=== PATIENT | female | born 1960 | race Caucasian/White ===

== ENCOUNTER → 2017-09-30 08:34 | Outpatient (CLI) | payer BC | END | disposition home or self-care (01) | LOC: D.RAD 08:34 | DX: K21.9 Gastro-esophageal reflux disease without esophagitis (principal) ==

== ENCOUNTER 2019-01-29 11:27 | Outpatient (CLI) | payer BC ==
[~2019-01-29] VITALS: Ht 162.6 cm; Wt 79.5 kg
--- NOTE | ~2019-01-29 | HEMODYNAMI ---
PATIENT:CROW PEREZ MEDICAL RECORD: [id number] : 58 LOCATION:[facility] ADMISSION DATE: 01/29/19 Generatedon:01/29/201913:58 Patient name: CROW PEREZ Patient #: [id number] SSN: DO B: 1960 Date of study: 01/29/2019 Page: Of Hemodynamic Procedure Report Patient Data Patient Demographics Procedure consent was obtained First Name: CROW Gender: Female Last Name: ANA : 1960 [facility] Initial: RO Age: 58 year(s) Patient #: [id number] Race: Unknown Additional ID: [id number] Contact details Address: [address] [place] [address] State: [place] City: [place] Zip code: [address] Admission Admission Data Admission Date: 01/29/2019 Admission Time: 11:27 Procedure Procedure Types Cath Procedure Diagnostic Procedure LHC LHC w/Coronaries Procedure Description Procedure Date Procedure Date: 01/29/2019 Procedure Start Time: 13:49 Procedure End Time: 13:57 Procedure Staff Name Function Pasquale Penn MD Performing Physician Analy Pace RT Monitor Opal Laura RT Scrub Venu Nelson RN Nurse Procedure Data Cath Procedure Fluoroscopy Diagnostic fluoroscopy Total fluoroscopy Time: 0 time: 0 min min Diagnostic fluoroscopy Total fluoroscopy dose: 288 dose: 288 mGy mGy Contrast Material Contrast Material Type Amount (ml) Isovue 370 51 Isovue 370 51 Entry Location Entry Primary Successful Side Size Upsize Upsize Entry Closure Succes sful Closure Location (Fr) 1 (Fr) 2 (Fr) Remarks Device Remarks Femoral Right 5 Fr Exoseal artery Estimated blood loss: 5 ml Diagnostic catheters Device Type Used For End Catheter Placement MULTIPACK JL 4.0 5Fr Left Coronary catheter Angiography MULTIPACK 3DRC 5Fr Right Coronary catheter Angiography MULTIPACK Pigtail 5 Fr LV Angiography catheter Procedure Complications No complications Procedure Medications Medication Administration Route Dosage Oxygen etCO2 Nasal cannula 2 l/min Heparin Flush Bag added to field 2 bags (1000units/500ml NS) 0.9% NaCl I.V. 100 ml/hr Zofran I.V. 4 mg Lidocaine 2% added to field 20 Fentanyl I.V. 50 mcg Versed I.V. 1 mg Fentanyl I.V. 50 mcg Versed I.V. 1 mg Hemodynamics Rest Heart Rate: 76 (bpm) Pressure Samples Time Site Value (mmHg) Purpose Heart Use Rate(bpm) 13:54 LV 131/7,13 Snapshot 88 13:54 AO 124/75(99) Pullback 82 Gradients Valve Time Site Site 2 Mean SEP/DFP Peak To Heart Use 1 (mmHg) (sec/min) Peak Rate (mmHg) (bpm) Aortic 13:54 LV AO 82 124/75(99) Snapshots Pre Cath Intra NCS Post Cath Vital Signs Time Heart Resp SPO2 etCO2 NIBP (mmHg) Rhythm Pain Sedation Rate (ipm) (%) (mmHg) Status Level (bpm) 13:39:31 77 16 95 0 140/77(108) NSR 0 (11) 10(A) , No pain 13:43:41 75 16 99 29.8 141/85(119) NSR 0 (11) 10(A) , No pain 13:47:57 70 17 98 23.1 123/77(96) NSR 0 (11) 9(A) , No pain 13:52:05 75 17 93 9.6 118/83(95) NSR 0 (11) 9(A) , No pain 13:56:09 78 17 97 34.3 132/87(99) NSR 0 (11) 9(A) , No pain Medications Time Medication Route Dose Verified Delivered Reason Notes Eff ectiveness by by 13:38:47 Oxygen etCO2 2 Pasquale Lea Per Nasal l/min [facility] David Nelson RN physician cannula 13:38:55 Heparin Flush added 2 Pasquale Lea used for Bag to bags [facility] David Nelson RN procedure (1000units/500ml field ABRAHAM NS) 13:39:02 0.9% NaCl I.V. 100 Pasquale Lea Per ml/hr [facility] David Nelson RN physician 13:39:12 Zofran I.V. 4 mg Pasquale Lea for nausea St David Nelson RN, MD 13:39:25 Lidocaine 2% added 20ml Pasquale Lea for local to vial [facility] David Nelson RN anesthetic field 13:45:52 Fentanyl I.V. 50 Pasquale Lea [place] [facility] Nelson RN sedation 13:45:58 Versed I.V. 1 mg Pasquale Lea for [facility] David Nelson RN sedation 13:50:17 Fentanyl I.V. 50 Pasquale Lea for [facility] David Nelson RN sedation 13:50:21 Versed I.V. 1 mg Pasquale Lea for [facility] David Nelson RN sedation Procedure Log Time Note 13:15:48 Opal Laura RT(R) sent for patient. Start room use. 13:28:49 Time tracking: Regular hours (M-F 7:00 - 5:00) 13:28:54 Plan of Care:Hemodynamics will remain stable., Cardiac rhythm will remain stable., Comfort level will be maintained., Respiratory function will remain adequate., Patient/ family verbilizes understanding of procedure., Procedure tolerated without complication., Recovers from procedure without complications.. 13:29:11 Patient received from Pre/Post Procedure Room to [facility] 2 Alert and oriented. Tansferred to table in Supine position. 13:29:12 Warm blankets applied, and fernanda hugger turned on for patient comfort. 13:29:13 Correct patient and procedure confirmed by team. 13:29:14 Signed procedure consent form obtained from patient. 13:29:15 ECG and BP/O2 sat monitors applied to patient. 13:38:34 Vital chart was started 13:38:47 Oxygen 2 l/min etCO2 Nasal cannula was administered by Venu Nelson RN; Per physician; 13:38:55 Heparin Flush Bag (1000units/500ml NS) 2 bags added to field was administered by Venu eNlson RN; used for procedure; 13:39:02 0.9% NaCl 100 ml/hr I.V. was administered by Venu Nelson RN; Per physician; 13:39:12 Zofran 4 mg I.V. was administered by Venu Nelson RN; for nausea; 13:39:25 Lidocaine 2% 20ml vial added to field was administered by Venu Nelson RN; for local anesthetic; 13:43:23 Baseline sample Acquired. 13:43:27 Rhythm: sinus rhythm 13:43:29 Full Disclosure recording started 13:43:33 H&P Date Dictated: 01/29/2019 Within 30 days and on chart., H&P Addendum completed by physician on day of procedure. (MUST COMPLETE FOR ALL OUTPATIENTS). 13:43:42 Pre-procedure instructions explained to patient. 13:43:43 Pre-op teaching completed and patient verbalized understanding. 13:43:44 Family in waiting room. 13:43:46 Patient NPO since Midnight. 13:43:47 Is the patient allergic to Iodine/contrast media? No. 13:43:48 Was the patient premedicated? No 13:43:51 Is patient on blood thinner?No 13:43:53 Patient diabetic? No. 13:43:57 If diabetic: On Metformin? No 13:44:04 Previous problem with sedation/anesthesia? Yes nausea 13:44:06 Snore? Yes 13:44:07 Sleep apnea? No 13:44:08 Deviated septum? No 13:44:09 Opens mouth fully? Yes 13:44:10 Sticks out tongue? Yes 13:44:12 Airway obstruction? No ? 13:44:21 Dentures? No ? 13:44:24 Pre procedure: right dorsailis pedis pulse 2+ Normal; easily identifiable; not easily obliterated 13:44:26 Pre procedure: left dorsailis pedis pulse 2+ Normal; easily identifiable; not easily obliterated 13:44:28 Patient pain scale 0/10 ?. 13:44:58 IV patent on arrival in left forearm with 0.9% NaCl at KVO. 13:45:00 Lab results completed and on chart. 13:45:04 Right groin area was prepped with chlora-prep and draped in sterile fashion 13:45:05 Alarms reviewed by R. N. 13:45:05 Sharps counted by scrub and verified by R.N. 13:45:07 Physician arrived 13:45:07 --------ALL STOP TIME OUT------ 13:45:08 Final Timeout: patient, procedure, and site verified with staff and physician. All members of the team are in agreement. 13:45:11 Right groin site verified by team. 13:45:14 Maximum allowable Isovue 370 dose 300ml. Physician notified. (300ml for normal creatinines. For patients with creatinine of 1.7 or higher multiply weight(kg) x 5 divided by creatinine.) 13:45:18 Fire Safety Assessment: A--An alcohol-based skin anteseptic being used preoperatively., C--Open oxygen or nitrous oxide is being used., D--An ESU, laser, or fiber-optic light is being used. 13:45:21 Physical assessment completed. ASA score P 2 - A patient with mild systemic disease as per Pasquale Penn MD. 13:45:24 Sedation plan: IV Moderate Sedation Medication:Versed, Fentanyl 13:45:29 Use device set Femoral Dx 13:45:30 ACIST Syringe (94700) opened to sterile field. 13:45:31 Bag Decanter (2002S) opened to sterile field. 13:45:31 Medline Cath Pack ([id number]) opened to sterile field. 13:45:31 DIAGNOSTIC WIRE .035 260cm J wire (243202) opened to sterile field. 13:45:33 ACIST Hand Control (16693) opened to sterile field. 13:45:33 ACIST Manifold (33075) opened to sterile field. 13:45:34 DIAGNOSTIC Multipack 5Fr catheter set (TP5873) opened to sterile field. 13:45:34 Tegaderm 4 x 4 (1626W) opened to sterile field. 13:45:35 SHEATH 5FR Cornwall (JTQ959) opened to sterile field. 13:45:52 Fentanyl 50 mcg I.V. was administered by Venu Nelson RN; for sedation; 13:45:58 Versed 1 mg I.V. was administered by Venu Nelson RN; for sedation; 13:49:19 Procedure started. 13:49:28 Local anesthetic to right femoral artery with Lidocaine 2% by Pasquale Penn MD.INITIAL ACCESS ONLY 13:49:37 A 5 Fr sheath was inserted into the Right Femoral artery 13:49:48 A MULTIPACK JL 4.0 5Fr catheter was advanced over the wire and used for Left Coronary Angiography. 13:50:17 Fentanyl 50 mcg I.V. was administered by Venu Nelson RN; for sedation; 13:50:21 Versed 1 mg I.V. was administered by Venu Nelson RN; for sedation; 13:50:39 LCA angiography performed. 13:50:43 Injector settings: Ml/sec: 3, Volume: 6, 13:50:54 Catheter removed. 13:51:11 A MULTIPACK 3DRC 5Fr catheter was advanced over the wire and used for Right Coronary Angiography. 13:53:11 RCA angiography performed. 13:53:16 Injector settings: Ml/sec: 3, Volume: 6, 13:53:19 Catheter removed. 13:53:42 A MULTIPACK Pigtail 5 Fr catheter was advanced over the wire and used for LV Angiography. 13:54:35 LV hemodynamics recorded. 13:54:36 LV gram done using BENNETT 13:54:39 Injector settings: Ml/sec: 5, Volume: 15, 13:54:49 EF : 55 % 13:54:52 Catheter removed. 13:54:54 EXOSEAL 5Fr (EX500) opened to sterile field. 13:55:13 Sheath removed intact; hemostasis achieved with Exoseal to the Right Femoral artery. 13:55:15 Procedure ended.(Physican Out) 13:55:20 Contrast amount:Isovue 370 51ml. 13:55:25 Fluoroscopy time 00.00 minutes. 13:55:33 Fluoroscopy dose: 288 mGy 13:55:33 Flurop Dose total: 288 13:55:44 Contrast amount:Isovue 370 51ml. 13:55:45 Sharps counted by scrub and verified by R.N. 13:55:50 Insertion/operative site no bleeding no hematoma. 13:55:53 Post-op/insertion site Right Femoral artery dressed using a 4 x 4 and Tegaderm. 13:55:56 Post right femoral artery:stable 13:55:58 Post Procedure Pulses reassessed and unchanged 13:56:01 Post procedure rhythm: unchanged. 13:56:36 Estimated blood loss: 5 ml 13:57:00 Post procedure instruction explained to patient.Patient verbalizes understanding. 13:57:00 Patient needs reinforcement of post procedure teaching. 13:57:06 Procedure and supply charges have been captured, reviewed, submitted and are correct. 13:57:13 Procedure Complication : No complications 13:57:16 Vital chart was stopped 13:57:17 See physician's report for complete and final results. 13:57:19 Report given to Pre/Post Procedure Room. 13:57:22 Patient transfered to Pre/Post Procedure Room with Stretcher. 13:57:26 Procedure ended. 13:57:26 Full Disclosure recording stopped 13:57:30 End room use (Document Last) Device Usage Item Name Manufacture Quantity Catalog Hospital Part Current Minimal L ot# / Number Charge Number Stock Stock Serial# Code ACIST Acist 1 21081 067271 559593 404930 20 Syringe Medical (22108) Systems Inc Bag Microtek 1 2001S 229119 64379 157176 5 Decanter Medical Inc. () Medline Medline 1 [id number] 762116 68021 337563 5 Cath Pack ([id number]) DIAGNOSTIC [facility] 1 406715 750552 785641 172103 30 WIRE .035 260cm J wire (391872) ACIST Hand Acist 1 08958 773568 554670 689591 5 Control Medical (17956) Systems Inc ACIST Acist 1 54073 485481 924084 515063 5 Manifold Medical (21355) Systems Inc DIAGNOSTIC Cardinal 1 FI0380 802498 14598 775605 30 Multipack Health 5Fr catheter set (UT9804) Tegaderm 4 3M 1 1626W 389935 046254 795767 5 x 4 (1626W) SHEATH 5FR Terumo 1 HRE637 515631 478404 413028 5 Cornwall (PZZ627) MULTIPACK Cardinal 1 041364 5 JL 4.0 5Fr Health catheter MULTIPACK Cardinal 1 485988 5 3DRC 5Fr Health catheter MULTIPACK Cardinal 1 771203 5 Pigtail 5 Health Fr catheter EXOSEAL 5Fr Cardinal 1 EX500 532424 625925 585985 10 (EX500) Health Signature Audit [employer] Stage Time Signature Unsigned Intra-Procedure 01/29/2019 Analy Pace 1:58:07 PM RT(R) Signatures Monitor : Analy Pace RT Signature : Date : Time : [facility] [address] [place] [address]
[2019-01-29] MEDS ORDERED: SYNTHROID50 MCG PO (11:49)
[2019-01-29] MEDS ORDERED: OMEPRAZOLE20 M1 PO (11:49)
[2019-01-29] MEDS ORDERED: PEPCID AC20 MG PO (11:52)
[2019-01-29 12:03] VITALS: BP 143/72; Ht 162.6 cm; Wt 79.5 kg
[2019-01-29 12:13] LABS: ANION GAP 10.6 mmol/L (8-16); CALCIUM 9.8 mg/dL (8.5-10.1); CARBON DIOXIDE 28.3 mmol/L (21.0-32.0); CREATININE - SERUM 1.1 mg/dL (0.6-1.3); POTASSIUM - SERUM 3.9 mmol/L (3.5-5.1)
[2019-01-29 12:15] LABS: BASOPHILS 0.6 % (0-2); EOSINOPHILS 2.7 % (0-7); HEMATOCRIT 39.5 % (36.0-48.0); HEMOGLOBIN 13.4 g/dL (12-16); IMMATURE GRANULOCYTES 0.4 % (0-5); LYMPHOCYTES 44.4 % (15-50); MCH 28.6 pg (26.0-34.0); MCHC 33.9 g/dL (31.0-37.0); MCV 84.4 fL (80.0-100.0); MEAN PLATELET VOLUME 11.1 fL (7.4-10.4); MONOCYTES 8.3 % (2-11); NEUTROPHILS 43.6 % (40-80); PLATELET COUNT 259 10x3/uL (130-400); RBC 4.68 10x6/uL (4.00-5.40); WBC 8.4 10x3/uL (4.8-10.8)
--- NOTE | 2019-01-29 14:15 | NUR ---
PT ARRIVED BY STRETCHER. PLACED ON MONITORS. ASSESSEMENT COMPLETED. DR. ESTRADA ARRIVED AND SPOKE WITH PT AND PT'S FAMILY. PT INSTRUCTED TO KEEP HEAD FLAT ON PILLOW AND RIGHT LEG STRAIGHT.
--- NOTE | 2019-01-29 14:30 | NUR ---
RIGHT GROIN DRESSING C/D/I. NO S/S OF HEMATOMA NOTED. VSS. CALL LIGHT WITHIN REACH. FAMILY AT BEDSIDE.
--- NOTE | 2019-01-29 15:00 | NUR ---
RIGHT GROIN DRESSING C/D/I. NO S/S OF HEMATOMA NOTED. PT'S HEAD OF BED INC TO 30 DEGREES. TOLERATED WELL. VSS. SET UP WITH SANDWICH TRAY AND DRINK. DENIES NAUSEA/PAIN AT THIS TIME. FAMILY AT BEDSIDE.
--- NOTE | 2019-01-29 15:30 | NUR ---
LEFT FA PIV D/C'D WITH CATH TIP INTACT. PT TOLERATED WELL. INSTRUCTED TO GET UP AND DRESSED. TO RESTROOM AND VOIDED WITHOUT DIFFICULTY.
--- NOTE | 2019-01-29 15:40 | NUR ---
DISCUSSED DISCHARGE INSTRUCTIONS WITH PT AND PT'S FAMILY. THEY VOICED UNDERSTANDING. RIGHT GROIN DRESSING C/D/I. NO S/S OF HEMATOMA NOTED.
--- NOTE | 2019-01-29 15:55 | NUR ---
PT TAKEN OUT TO VEHICLE BY WHEELCHAIR. NO S/S OF DISTRESS NOTED. ALL BELONGINGS AND PAPERWORK IN HAND.
--- NOTE | 2019-01-30 09:47 | EC ---
PATIENT:CROW EPREZ DATE OF SERVICE: 01/29/19 SEX: F MEDICAL RECORD: [id number] DATE OF : 58 LOCATION:[facility] AGE OF PATIENT: 58 ADMISSION DATE: 01/29/19 REFERRING PHYSICIAN: INTERPRETING PHYSICIAN: KRISTI HAWKINS MD ECHOCARDIOGRAM REPORT ECHO CHARGES Date: CLINICAL DIAGNOSIS: ECHOCARDIOGRAPHIC MEASUREMENTS (adult normal given) AC root (d.<3.7cm) cm LV Septum d (<1.2 cm> cm Valve Excursion cm LV Septum (systole) cm Left Atria (s.<4.0cm> cm LVPW d(<1.2cm) cm RV (d.<2.3cm) cm LVPW (sytole) cm LV diastole(<5.6CM) cm MV E-F(>70mm/sec) cm LV systole cm LVOT Diameter cm MV exc.(>10mm) cm Est.ejection fraction (50-75%) % DOPPLER: LVIT cm/sec A cm/sec E cm/sec LA cm/sec RVSP mmHg LVOT cm/sec AOP1/2T m/s Asc. Ao cm/sec RVOT cm/sec RA cm/sec PA cm/sec AV Gradient Peak mmHg AV Mean mmHg AV Area cm MV Gradient Peak mmHg MV Mean mmHg MV Area cm COMMENTS: Cable Weaver: Thermal Cutting Tracer Machine Operator: NAZIA# Pericardial Effusion DATE OF SERVICE: 01/29/2019 PROCEDURE: Left heart catheterization, selective coronary angiography, right radial approach. CATHETERS: A 5-Indonesian sheath, 5/4 left and right Olivia, 5/4 pig. The procedure was well tolerated. The patient was returned to [place]. Sheath was removed. ExoSeal device was placed. ECHOCARDIOGRAM REPORT [id number] CROW PEREZ FINDINGS: Left ventriculography in 30-degree BENNETT view; normal wall motion and normal systolic function. CORONARY ANATOMY: LEFT MAIN: Left main is free of disease. LAD: Free of disease in the diagonal system. CIRCUMFLEX: Free of disease in the marginal system. RIGHT CORONARY ARTERY: Dominant artery, free of disease. IMPRESSION: Normal LV systolic function. Normal coronary anatomy. TRANSINT:[id number] Voice Confirmation ID: [id number] DOCUMENT ID: [id number] KRISTI HAWKINS MD at 0947 CC: [id number] DICTATION DATE: 01/29/19 1401 [employer] SET UP TECHNICIAN: 01/29/19 1416 DEP CLI 01/29/19 [facility] [address] [place] [address]
== END 2019-01-29 15:55 | disposition home or self-care (01) ==
LOC: D.CATH 11:27
PROVIDERS: ATTEND Internal Medicine Interventional Cardiology
DX: I20.9 Angina pectoris, unspecified (principal); R94.31 Abnormal electrocardiogram [ECG] [EKG]; Z01.812 Encounter for preprocedural laboratory examination

== ENCOUNTER → 2019-09-08 07:34 | Outpatient (CLI) | payer BC ==
[2019-01-29 12:03] VITALS: BMI 30.1
[~2019-09-08 07:34] MED LIST: OMEPRAZOLE20 M1 PO; PEPCID AC20 MG PO; SYNTHROID50 MCG PO
== END | disposition home or self-care (01) ==
LOC: D.CT 07:34
PROVIDERS: ATTEND Internal Medicine Gastroenterology
DX: R11.0 Nausea (principal); R68.81 Early satiety; R64 Cachexia; E07.9 Disorder of thyroid, unspecified; G62.9 Polyneuropathy, unspecified

== ENCOUNTER → 2020-03-08 07:33 | Outpatient (CLI) | payer BC ==
[2019-01-29 12:03] VITALS: BMI 30.1
[2020-03-08 08:32] LABS: ALBUMIN 3.6 g/dL (3.4-5.0); BILIRUBIN - DIRECT 0.09 mg/dL (0.00-0.30); BILIRUBIN - INDIRECT 0.3 mg/dL (0.00-1.00); BILIRUBIN - TOTAL 0.39 mg/dL (0.2-1.3); PROTEIN - SERUM 7.2 g/dL (6.4-8.2)
== END | disposition home or self-care (01) ==
LOC: D.US 07:33
PROVIDERS: ATTEND Internal Medicine Gastroenterology
DX: K76.0 Fatty (change of) liver, not elsewhere classified (principal)